=== PATIENT | male | born 1990 | race Caucasian/White ===

== ENCOUNTER 2023-10-12 09:03 | Emergency (ER) | payer BC, SELFPAY ==
[2023-10-12 09:06] VITALS: BP 129/74
--- NOTE | 2023-10-12 09:21 | ED.GENMED ---
History of Present Illness
General
Chief Complaint: Crisis Evaluation
Source: patient and spouse
Exam Limitations: none
Time Seen by Provider: 10/12/23 09:09
Nursing documentation reviewed up to this point in time: agreed with
Travel History
Have you had any contact with someone who has COVID-19?: No
Do you have any symptoms of coronavirus? Fever > 100 degrees, chills, cough, shortness of breath, sore throat, loss of taste or smell, muscle aches, or headache?: No
History of Present Illness
History of Present Illness:
33-year-old male past medical history of previous brain issue and brain surgery as a small child, seizure disorder anxiety depression presenting to the emergency department today with concerns of anger issues at home with his and throwing
objects in his house also very poor impulse control with purchases more recently. He is seeking psychiatric evaluation. Denies any chest pain shortness of breath nausea vomiting numbness weakness or additional concerns otherwise. Denies daily
drinking or drug use.
Past History
Past History
ED Past Medical History: Seizures and Other (Intercranial Hemorrhage at ,)
ED Past Surgical History: None
Social History
Tobacco: Non-smoker
Alcohol: None
Drug: None
Personal:
Living: with family
Employment: Employed (private wealth advisor)
Review of Systems
Review of Systems
Allergies reviewed?: Yes
All Other Systems: ROS reviewed and negative except as documented in HPI and ROS
Phy Exam
Physical Exam
Physical Exam:
GENERAL: Alert , in no apparent distress
EYE: pupils equal and reactive
NECK: Supple, no significant adenopathy.
ENT: o/p clr, mmm.
CARDIAC: Regular rate and rhythm .
LUNGS: Clear breath sounds bilaterally, no acute respiratory distress, no wheezes/rales/rhonchi
ABDOMEN: Soft, without focal tenderness, no r/g, no cvat
NEUROLOGICAL: Alert and oriented, no focal neuro deficits
SKIN: Warm and dry, skin intact.
MUSCULOSKELETAL: No edema, well perfused.
PSYCH: Normal and appropriate interaction.
Course
Orders/Labs/Results
Orders:
Orders
10/12/23 09:20
EKG [Electrocardiogram (*1)] Urgent
Reason for Study: QTc Monitoring
EKG- Treatment ONCE
10/12/23 09:30
Alcohol Urgent
CBC/With Diff [Complete Blood Count/With Diff] Urgent
CMP [Comprehensive Metabolic Panel] Urgent
10/12/23 10:22
Urine Drug Abuse Screen Urgent
Date Specimen was Collected: 10/12/23
Time Specimen was Collected: 10:18
Abnormal Lab Results
10/12/23
09:30
WBC 4.4 L 10^3/uL
(4.8-10.8)
MCH 32.1 H pg
(27.0-31.0)
Immature Gran % 0.9 H %
(0-0.5)
Glucose 108 H mg/dl
(70-99)
10/12/23 09:30
10/12/23 09:30
Vital Signs
Initial and Last Documented VS:
Initial Vital Signs
Temp Pulse Resp BP Pulse Ox
97.6 F 70 16 129/74 98
10/12/23 09:06 10/12/23 09:06 10/12/23 09:06 10/12/23 09:06 10/12/23 09:06
Last Documented Vital Signs
Temp Pulse Resp BP Pulse Ox
97.6 F 70 16 129/74 98
10/12/23 09:06 10/12/23 09:06 10/12/23 09:06 10/12/23 09:06 10/12/23 09:06
MDM/Problems Addressed
MDM/Problems Addressed:
33-year-old male presenting to the emergency department for psychiatric evaluation. Denies any medical symptoms. Has for a long time had poor impulse control but seems to be worse over the past few weeks with excessive financial purchases as well
as for anger management. During my assessment patient is in no acute distress very calm speaking or. Normal vital signs. Screening labs were ordered otherwise stable for crisis assessment. Labs unremarkable EKG normal. Patient denies any
specific suicidal or homicidal ideation. Patient is well-kempt and cooperative. Stable for discharge to crisis.
*Critical Care Note
Total Time (30-74mins, 75-104mins- exclusive of procedures): Not Applicable
ED Attending Note
-
Portions of this chart may have been created with voice recognition software.� Occasional wrong word or��sound alike� substitutions may have occurred due to the inherent limitations of voice recognition software.
Discharge Plan
Departure
Patient Disposition: [facility]
Date of Disposition: 10/12/23
Time of Disposition: 10:52
Patient with high blood pressure during this ER visit?: No
Condition: Good
Covid-19: Not Applicable
Discharge Problem:
Disorder of impulse control
Prescriptions:
No Action
divalproex 500 MG tablet,delayed release (DR/EC)
500 mg PO BID
oxcarbazepine 300 MG tablet
300 mg PO BID
lamotrigine 100 MG tablet
50 mg PO BID
Referrals:
Ritchie Chew MD [Family Provider] -
Activity Restrictions/Additional Instructions:
You came to the emergency department today with concerns of mental health. Here you had a medical screening examination without acute abnormalities. Please follow-up with crisis directly. Return to the emergency department for any worsening, new
or concerning symptoms.
Interventions
Interventions:
*ED COVID-19 Vaccine History Last Done: 10/12/23 09:06
ED-Psychological Assessment Last Done: 10/12/23 09:33
Discharge Date and Time
Print Language: WALLISIAN
[2023-10-12 09:38] LABS: % Basophils 1.4 % (0-2); % Eosinophils 4.1 % (0-6); % Immature Granulocytes 0.9 % (0-0.5); % Monocytes 8.6 % (1.7-9.3); Absolute Basophils 0.1 10^3/uL (0-0.2); Absolute Eosinophils 0.2 10^3/uL (0-0.7); Absolute Lymphocytes 1.8 10^3/uL (1.2-3.4); Absolute Monocytes 0.4 10^3/uL (0.1-0.6); Hematocrit 41.6 % (39.0-52.0); Hemoglobin 15.1 g/dL (13.0-18.0); Mean Corp Hgb Conc. 36.3 g/dL (33.0-37.0); Mean Corpuscular Hgb 32.1 pg (27.0-31.0); Mean Corpuscular Volume 88.3 fL (80.0-94.0); Mean Platelet Volume 9.7 fL (7.4-10.4); Nucleated Red Blood Cells % 0 % (-); Platelet Count 152 10^3/uL (130-400); Red Blood Cell Count 4.71 10^6/uL (4.70-6.10); Red Cell Dist. Width 12.6 % (11.5-14.5); White Blood Cell Count 4.4 10^3/uL (4.8-10.8)
[2023-10-12 10:07] LABS: ALT (SGPT) 18 U/L (0-50); AST (SGOT) 24 U/L (17-59); Albumin 4.5 g/dl (3.5-5.0); Alcohol None Detected; Alkaline Phosphatase 52 U/L (38-126); Blood Urea Nitrogen 15 mg/dl (9-20); Calcium 9.4 mg/dl (8.4-10.2); Carbon Dioxide 26 mmol/L (22-30); Chloride 104 mmol/L (98-107); Glucose 108 mg/dl (70-99); Sodium 139 mmol/L (135-145); Total Bilirubin 0.3 mg/dl (0.2-1.3); eGFR > 60.00
[2023-10-12 10:45] LABS: Amphetamines Negative (Negative); Barbiturates Negative (Negative); Benzodiazepines Negative (Negative); Buprenorphine Negative (Negative); Cocaine Negative (Negative); Marijuana Negative (Negative); Methadone Negative (Negative); Methamphetamines Negative (Negative); Opiates Negative (Negative); Phencyclidine Negative (Negative); Tricyclic Antidepressants Negative (Negative)
== END 2023-10-12 11:14 ==
LOC: EMR 09:03
PROVIDERS: Physician Assistant; EMERGENCY PHYSICIAN Emergency Medicine; FAMILY PHYSICIAN Family Medicine
DX: F63.9 Impulse disorder, unspecified (principal); G40.909 Epilepsy, unspecified, not intractable, without status epilepticus; F41.8 Other specified anxiety disorders
CPT/HCPCS: 99283; 80053; 80306; 82077; 85025; 93005